=== PATIENT | male | born 1970 | race Caucasian/White ===

== ENCOUNTER 2018-10-12 08:25 | Outpatient (CLI) | payer OTHER | END 2018-10-12 08:26 | disposition home or self-care (01) | LOC: CTENTCT 08:25 | PROVIDERS: ATTEND Otolaryngology Plastic Surgery within the Head & Neck | DX: J33.9 Nasal polyp, unspecified (principal) | CPT/HCPCS: 70486 ==

== ENCOUNTER 2018-10-25 09:42 | Day surgery (SDC) | payer OTHER ==
[2018-10-24 14:44] VITALS: BMI 37.2
[2018-10-25] MEDS ORDERED: Oxymetazoline HCl 0.05% ( 15 ML ) ONE ×2 (10:57→11:54)
[2018-10-25] MEDS ORDERED: Lidocaine 1% w/Epinephrine 1:100K 20 ML VIAL ONE (11:54)
[2018-10-25] MEDS ORDERED: Fentanyl 100 MCG/2 ML VIAL ONE ×3 (11:55→13:48)
[2018-10-25] MEDS ORDERED: Midazolam HCl 2 mg/2 ml Vial ONE (11:55)
[2018-10-25] MEDS ORDERED: Albuterol Sulfate HFA (OR ONLY) ONE (12:30)
[2018-10-25] MEDS ORDERED: Labetalol HCl 100 MG/20 ML VIAL ONE (13:38)
[2018-10-25] MEDS ORDERED: hydrALAZINE 20 MG/ML VIAL ONE (14:02)
[2018-10-25] MEDS ORDERED: Ondansetron PF 4 MG/2 ML Vial ONE (14:56)
[2018-10-25] MEDS ORDERED: Lidocaine 1% PF 5 ML VIAL ONE (14:56)
[2018-10-25] MEDS ORDERED: Dexamethasone 20 MG/5 ML VIAL ONE (14:56)
[2018-10-25] MEDS ORDERED: PROPOFOL 200 MG/20 ML VIAL ONE (14:56)
[2018-10-25] MEDS ORDERED: Succinylcholine Chloride 20 MG/ML 10 ml SYRINGE FS ONE (14:56)
[2018-10-25] MEDS ORDERED: PROVENTIL INHALER 6.7 G (200 INHALATIONS) ONE (14:56)
[2018-10-25] MEDS ORDERED: HYDROcodone/Acetaminophen 5/325 mg Tablet ONE (15:02)
--- NOTE | 2018-10-26 11:31 | OP ---
DATE OF PROCEDURE: 10/25/2018 PREOPERATIVE DIAGNOSES: 1. Bilateral nasal polyposis. 2. Fungal sinusitis. 3. Chronic rhinosinusitis. 4. Bilateral inferior turbinate hypertrophy. 5. Nasal septal deviation. POSTOPERATIVE DIAGNOSES: 1. Bilateral nasal polyposis. 2. Fungal sinusitis. 3. Chronic rhinosinusitis. 4. Bilateral inferior turbinate hypertrophy. 5. Nasal septal deviation. PROCEDURES: 1. Bilateral endoscopic sinus surgery, total ethmoidectomies with removal of tissue. 2. Bilateral endoscopic sinus surgery, maxillary antrostomies with removal of tissue. 3. Bilateral endoscopic sinus surgery, frontal sinusotomies with removal of tissue. 4. Bilateral endoscopic sinus surgery, sphenoidotomy with removal of tissue. 5. Bilateral inferior turbinate submucosal resection. 6. [employer] image-guided cranial based navigational surgery. ESTIMATED BLOOD LOSS: 100 mL. COMPLICATIONS: None. ANESTHESIA: GETA. DESCRIPTION OF PROCEDURE: Patient was taken to the operating room and placed on table, general tracheal anesthesia was obtained by the anesthesia staff. Tube was secured in the left lower lip. The patient was then placed in a beach chair position. Following this, the GVISP 1 image-guided system was set up, calibrated, and was noted to be within 1 mm of accuracy. Following this, the nasal cavity, which were completely obstructing the entire nasal cavities on both sides were then resected using the microdebrider. Following this, the resection was performed until the posterior pharyngeal wall was visualized in the middle turbinate and the lateral nasal wall structures were identified. Following this, 1% lidocaine with 1:100,000 epinephrine were injected into the lateral nasal wall, inferior turbinates, and middle turbinates bilaterally. Following this, the navigational assisted 0-degree microdebrider was used to remove the uncinate process bilaterally as well as identify and widen the maxillary sinus bilaterally. The ethmoidal bulla was identified and was punctured on its medial and inferior aspects using the microdebrider. Nasal polyps were removed throughout the ethmoidal bulla cell and the anterior ethmoidal cells. Following this, the grand lamella was identified and was punctured through the posterior ethmoidal cells into the posterior ethmoids. Following this, working from posterior to anterior, the ethmoidal cells were opened. The ethmoidal sinuses were completely opacified with allergic fungal debris and nasal polyps which were removed using the 0-degree microdebrider and the curved microdebrider. Following this, the sphenoid sinuses were approached through the previous ethmoidectomies with a navigational system. The anterior wall of sphenoid sinuses was identified bilaterally and was punctured into the sphenoid sinus using the 0-degree microdebrider bilaterally. The sphenoidotomies were widened medially and inferiorly using the microdebrider. Nasal polyps were removed from the sphenoid sinuses bilaterally. Following this, the 45-degree endoscope and the 40-degree microdebrider blade were used to further open the anterior ethmoidal cells and frontal recess cells. Both were required for nasal polyp removal. Following this, the natural frontal sinus ostia was identified using direct visualization of the 45-degree endoscope and the image-guided system and was widened using the 40-degree microdebrider blade bilaterally. Nasal polyps were removed as well as allergic fungal debris from the frontal sinus bilaterally. Following this, the nasal cavity was copiously irrigated. The curved microdebrider was then used to puncture the maxillary sinus ostia and widened the maxillary sinus ostia removing infected bone and nasal polyps in this area. Nasal polyps and allergic fungal debris were noted to be completely filling the maxillary sinus bilaterally, which were cleaned using the curved suction as well. Following this, the inferior turbinates were punctured on the anterior and inferior aspects with the submucosal microdebrider and submucosal resection was performed of the anterior and inferior portions of the inferior turbinates. Patient tolerated the procedure well. Nasal cavity was irrigated. Mirapex was placed within the middle meatus. Job ID: [id number]
== END 2018-10-25 16:30 | disposition home or self-care (01) ==
LOC: SDC 09:42
PROVIDERS: ATTEND Otolaryngology Plastic Surgery within the Head & Neck
PROC: 09TU8ZZ Resection of Right Ethmoid Sinus, Via Natural or Artificial Opening Endoscopic (ICD-10-PCS; principal; 2018-10-25)
PROC: 099Q8ZZ Drainage of Right Maxillary Sinus, Via Natural or Artificial Opening Endoscopic (ICD-10-PCS; principal; 2018-10-25)
PROC: 09TL8ZZ Resection of Nasal Turbinate, Via Natural or Artificial Opening Endoscopic (ICD-10-PCS; principal; 2018-10-25)
PROC: 09TT8ZZ Resection of Left Frontal Sinus, Via Natural or Artificial Opening Endoscopic (ICD-10-PCS; principal; 2018-10-25)
PROC: 099R8ZZ Drainage of Left Maxillary Sinus, Via Natural or Artificial Opening Endoscopic (ICD-10-PCS; principal; 2018-10-25)
PROC: 09TV8ZZ Resection of Left Ethmoid Sinus, Via Natural or Artificial Opening Endoscopic (ICD-10-PCS; principal; 2018-10-25)
PROC: 09TS8ZZ Resection of Right Frontal Sinus, Via Natural or Artificial Opening Endoscopic (ICD-10-PCS; principal; 2018-10-25)
DX: J34.3 Hypertrophy of nasal turbinates (principal); J32.4 Chronic pansinusitis; J33.9 Nasal polyp, unspecified; I10 Essential (primary) hypertension; Z79.899 Other long term (current) drug therapy
CPT/HCPCS: 88304; 93005; 93010; J0360; J1100; J2001; J2250; J2405; J2704; J3010

== ENCOUNTER 2023-08-10 08:39 | Day surgery (SDC) | payer OTHER ==
[2023-08-08 16:06] VITALS: BMI 40.6
[2023-08-10] MEDS ORDERED: Oxymetazoline HCl 0.05% (30 ML BOT) ONE ×2 (11:14→12:47)
[2023-08-10] MEDS ORDERED: fentaNYL PF 100 MCG/2 ML SYRINGE ONE (12:46)
[2023-08-10] MEDS ORDERED: PROPOFOL 20 ML ONE (12:46)
[2023-08-10] MEDS ORDERED: EPINEPHrine 1 MG/ML VIAL ONE (12:47)
[2023-08-10] MEDS ORDERED: Lidocaine 1% (PF) 30 ML VIAL ONE (12:47)
[2023-08-10] MEDS ORDERED: Bacitracin Zinc Ointment 30 gm TUBE ONE (12:47)
[2023-08-10] MEDS ORDERED: Rocuronium Bromide 10 MG/ML (10ML VIAL) ONE (12:49)
[2023-08-10] MEDS ORDERED: SUCCINYLCHOLINE/SOD CL,ISO/PF 200 MG/10 ML SYRINGE FS ONE (12:49)
[2023-08-10] MEDS ORDERED: Dexamethasone 20 MG/5 ML VIAL ONE (13:20)
[2023-08-10] MEDS ORDERED: Ondansetron PF 4 MG/2 ML Vial ONE (13:20)
== END 2023-08-10 15:20 | disposition home or self-care (01) ==
LOC: SDC 08:39
PROVIDERS: ATTEND Otolaryngology Plastic Surgery within the Head & Neck
PROC: 09TU8ZZ Resection of Right Ethmoid Sinus, Via Natural or Artificial Opening Endoscopic (ICD-10-PCS; principal; 2023-08-10)
PROC: 09TW8ZZ Resection of Right Sphenoid Sinus, Via Natural or Artificial Opening Endoscopic (ICD-10-PCS; principal; 2023-08-10)
PROC: 09TX8ZZ Resection of Left Sphenoid Sinus, Via Natural or Artificial Opening Endoscopic (ICD-10-PCS; principal; 2023-08-10)
PROC: 09TQ8ZZ Resection of Right Maxillary Sinus, Via Natural or Artificial Opening Endoscopic (ICD-10-PCS; principal; 2023-08-10)
PROC: 09TS8ZZ Resection of Right Frontal Sinus, Via Natural or Artificial Opening Endoscopic (ICD-10-PCS; principal; 2023-08-10)
PROC: 09TR8ZZ Resection of Left Maxillary Sinus, Via Natural or Artificial Opening Endoscopic (ICD-10-PCS; principal; 2023-08-10)
PROC: 09TT8ZZ Resection of Left Frontal Sinus, Via Natural or Artificial Opening Endoscopic (ICD-10-PCS; principal; 2023-08-10)
PROC: 09TV8ZZ Resection of Left Ethmoid Sinus, Via Natural or Artificial Opening Endoscopic (ICD-10-PCS; principal; 2023-08-10)
DX: J34.2 Deviated nasal septum (principal); J32.4 Chronic pansinusitis; J33.0 Polyp of nasal cavity; J30.89 Other allergic rhinitis
CPT/HCPCS: 88304; J0171; J1100; J2001; J2405; J2704